=== PATIENT | male | born 1950 | race Caucasian/White ===

== ENCOUNTER 2017-08-13 13:51 | Inpatient (IN) ==
[2017-08-13] MEDS ORDERED: Ipratropium/Albuterol Neb 3 ML IH ONE (14:04)
[2017-08-13] MEDS ORDERED: methylPREDNISolone 125 MG/2 ML VIAL IVP ONE (14:04)
[2017-08-13] MEDS ORDERED: Azithromycin 500 MG in D5% in Water 250 ML IVPB ONE (14:20)
[2017-08-13] MEDS ORDERED: cefTRIAXone 1,000 MG in Water for inj. (sterile) 20 ML 10 ML IVP ONE (14:20)
[2017-08-13] MEDS ORDERED: 0.9 % Sodium Chloride 1,000 ML IVC ONE (14:34)
[2017-08-13 14:54] LABS: Basophils # 0.1 K/mcL (0.0-0.2); Basophils % 0.3 %; Eosinophils # 0.1 K/mcL (0.0-0.6); Eosinophils % 0.4 %; Hematocrit 38.1 % (37.5-50.1); Hemoglobin 13.8 g/dL (12.9-16.9); Immature Granulocytes % 0.8 % (0-4); Immature Platelets 6.4 % (1.1-6.1); Lymphocytes # 1.4 K/mcL (0.6-4.6); Lymphocytes % 4.4 %; Mean Corpuscular HGB Conc 36.2 g/dL (31.6-35.5); Mean Corpuscular Hemoglobin 31.2 pg (28.0-33.3); Mean Platelet Volume 10.1 fL (9.4-12.4); Monocytes # 1.2 K/mcL (0.0-1.3); Monocytes % 3.8 %; Platelet Count 314 K/mcL (140-400); Red Blood Count 4.43 M/mcL (4.19-5.50); Red Cell Distribution Width 12.4 % (11.5-14.5); Segmented Neutrophils % 90.3 %
[2017-08-13 14:55] LABS: Neutrophils # 28.2 K/mcL (1.6-8.9)
[2017-08-13 15:10] LABS: BUN/Creatinine Ratio 27 (6-26); Blood Urea Nitrogen 22 mg/dL (8-23); Calcium 9.1 mg/dL (8.6-10.3); Carbon Dioxide 26 mEq/L (23-29); Chloride 100 mEq/L (98-107); Glucose 93 mg/dL (70-105); Osmolality,Calculated 283 (280-300); Potassium 3.5 mEq/L (3.5-5.1); Sodium 135 mEq/L (136-145); eGFR For African Americans > 60 (> 60); eGFR For Non-African Americans > 60 (> 60)
--- NOTE | 2017-08-13 15:12 | Emergency Department Note ---
Disposition Clinical Impression: Acute exacerbation of chronic obstructive airways disease, Community acquired pneumonia Disposition: Admitted As Inpatient Condition: Good Referrals: Able-Latosha Charlton DO [Family Provider] - Forms: ED Satisfaction Letter Time of Disposition: 16:01 [facility] [place] - General Chief Complaint: ED Shortness of Breath/Dyspnea Stated Complaint: Possible Pneumonia Time Seen by Provider: 08/13/17 13:58 Source: patient Limitations: no limitations Nursing Notes Reviewed: Yes Vital Signs Reviewed: Yes - History of Present Illness 66-year-old male presents emergency room for 4 day history of cough and shortness of breath. Patient admits to some clear sputum production. Unsure if these had any documented fevers or not. Denies chest pain but states he does have some chest discomfort while coughing. And has a history of smoking but has not smoked in a long time. He does not wear home oxygen. He does require oxygen upon arrival. No other complaints at this time. - Related Data Allergies Allergy/AdvReac Type Severity Reaction Status Date / Time No Known Allergies Allergy Verified 08/13/17 15:29 Constitutional: Reports: chills ENT ED: Reports: as per HPI Cardiovascular: Reports: as per HPI. Denies: chest pain Respiratory: Reports: cough, dyspnea, wheezes Gastrointestinal: Denies: abdominal pain Genitourinary: Reports: as per HPI Musculoskeletal: Reports: as per HPI Integumentary: Reports: as per HPI Neurological: Reports: as per HPI Psychiatric: Reports: as per HPI Endocrine: Reports: as per HPI Hematological/Lymphatic: Reports: as per HPI Past Medical History - Past Medical History Medical history: Reports: no medical history Psychiatric history: Reports: no psych history - Social History Smoking Status: Former smoker Smokeless Tobacco Status: No Alcohol use: Reports: rarely Drug use: Reports: none Physical Exam - General Limitations: no limitations General appearance: alert, in no apparent distress - Head Head exam: atraumatic, normocephalic - ENT ENT exam: normal exam - Neck Neck exam: Present: normal inspection - Chest Chest inspection: Present: normal inspection, symmetric chest wall rise - Respiratory Respiratory exam: Present: respiratory distress ( tachypneic), other (Decreased breath sounds in the right side. Positive rhonchi on the right side.) - Cardiovascular Cardiovascular exam: Present: normal rhythm, tachycardia - Abdominal Exam Abdominal exam: Present: soft, Non-Tender, normal bowel sounds - Extremities Exam Extremities exam: Present: normal inspection, full ROM. Absent: tenderness - Expanded Lower Extremity Exam Hip/Pelvis exam: Present: normal inspection - Neurological Exam Neurological exam: Present: alert, oriented X3 - Psychiatric Psychiatric exam: Present: normal affect, normal mood - Skin Skin exam: Present: warm, dry, intact Course Vital Signs Temperature 98.8 F 08/13/17 13:53 Pulse Rate 129 08/13/17 13:53 Respiratory Rate 18 08/13/17 13:53 Blood Pressure 148/72 08/13/17 13:53 O2 Sat by Pulse Oximetry 88 08/13/17 13:53 Temperature 98.8 F 08/13/17 13:53 Pulse Rate 118 08/13/17 15:12 Respiratory Rate 22 08/13/17 15:12 Blood Pressure 123/69 08/13/17 15:12 O2 Sat by Pulse Oximetry 96 08/13/17 15:12 Oxygen Delivery Oxygen Delivery Nasal Cannula Shortness of Breath/Dyspnea - [facility] Narrative Medical decision making narrative: Patient's chest x-ray is indicative of a right basilar pneumonia. I will start him on IV Rocephin and IV Zithromax. Patient will be started on IV fluids as he definitely meets SIRS criteria. Blood cultures obtained. Patient had an incidental note of an elevated d- dimer. We will do a CTA of the chest to evaluate for possible PE as well. - Medical Records Medical records reviewed: Yes I reviewed the patient's medical records. - Lab Data Lab results reviewed: Yes I reviewed the patient's lab results. Result diagrams: 08/13/17 14:39 08/13/17 14:39 Lab Results 08/13/17 08/13/17 08/13/17 Range/Units 14:39 14:39 14:39 WBC 31.2 H* (4.3-11.1) K/mcL RBC 4.43 (4.19-5.50) M/mcL Hgb 13.8 (12.9-16.9) g/dL Hct 38.1 (37.5-50.1) % MCV 86.0 (83.0-100.0) fL MCH 31.2 (28.0-33.3) pg MCHC 36.2 H (31.6-35.5) g/dL RDW 12.4 (11.5-14.5) % Plt Count 314 (140-400) K/mcL MPV 10.1 (9.4-12.4) fL Immature Gran % 0.8 (0-4) % Seg Neutrophils % 90.3 % Lymphocytes % 4.4 % Monocytes % 3.8 % Eosinophils % 0.4 % Basophils % 0.3 % Neutrophils # 28.2 H (1.6-8.9) K/mcL Lymphocytes # 1.4 (0.6-4.6) K/mcL Monocytes # 1.2 (0.0-1.3) K/mcL Eosinophils # 0.1 (0.0-0.6) K/mcL Basophils # 0.1 (0.0-0.2) K/mcL Platelet Estimate Normal (Normal) Immature Plt Fraction 6.4 H (1.1-6.1) % D-Dimer 1253 H (0-500) ng/mLFEU Sodium 135 L (136-145) mEq/L Potassium 3.5 (3.5-5.1) mEq/L Chloride 100 (98-107) mEq/L Carbon Dioxide 26 (23-29) mEq/L BUN 22 (8-23) mg/dL Creatinine 0.81 (0.70-1.30) mg/dL Est GFR ( Amer) > 60 (> 60) Est GFR (Non-Af Amer) > 60 (> 60) BUN/Creatinine Ratio 27 H (6-26) Glucose 93 (70-105) mg/dL Calculated Osmolality 283 (280-300) Lactic Acid (0.5-2.2) mmol/L Calcium 9.1 (8.6-10.3) mg/dL 08/13/17 Range/Units 14:45 WBC (4.3-11.1) K/mcL RBC (4.19-5.50) M/mcL Hgb (12.9-16.9) g/dL Hct (37.5-50.1) % MCV (83.0-100.0) fL MCH (28.0-33.3) pg MCHC (31.6-35.5) g/dL RDW (11.5-14.5) % Plt Count (140-400) K/mcL MPV (9.4-12.4) fL Immature Gran % (0-4) % Seg Neutrophils % % Lymphocytes % % Monocytes % % Eosinophils % % Basophils % % Neutrophils # (1.6-8.9) K/mcL Lymphocytes # (0.6-4.6) K/mcL Monocytes # (0.0-1.3) K/mcL Eosinophils # (0.0-0.6) K/mcL Basophils # (0.0-0.2) K/mcL Platelet Estimate (Normal) Immature Plt Fraction (1.1-6.1) % D-Dimer (0-500) ng/mLFEU Sodium (136-145) mEq/L Potassium (3.5-5.1) mEq/L Chloride (98-107) mEq/L Carbon Dioxide (23-29) mEq/L BUN (8-23) mg/dL Creatinine (0.70-1.30) mg/dL Est GFR ( Amer) (> 60) Est GFR (Non-Af Amer) (> 60) BUN/Creatinine Ratio (6-26) Glucose (70-105) mg/dL Calculated Osmolality (280-300) Lactic Acid 1.5 (0.5-2.2) mmol/L Calcium (8.6-10.3) mg/dL - Radiology Data Radiology results reviewed: Yes I reviewed the patient's radiology results. - EKG Data EKG attestation: Yes I reviewed and interpreted this EKG. EKG results narrative: EKG shows a rate of 125. Sinus tachycardia. IN interval 157. QRS 77. QTC 366. No signs of any ST elevation. Critical Care Time Critical Care Time: Yes Total Critical Care Time: 35 Attestation: critical care time spent in sirs management of pneumonia/sirs
[2017-08-13 15:15] LABS: Platelet Estimate Normal (Normal)
--- NOTE | 2017-08-13 17:29 | Internal Med History&Physical ---
Date of Encounter: 08/14/17 Time of Encounter: 16:00 Assessment and Plan (1) Acute exacerbation of chronic obstructive airways disease Current visit: Yes Status: Acute The patient has no history of COPD, however long history of smoking and and finding on physical exam are suggestive of COPD, we will start the patient on steroids and neb treatment. (2) Community acquired pneumonia Current visit: Yes Status: Acute ASSESSMENT: - SOB due to *Pneumonia Previous ABx Tx- CAP severity score (PORT score): - Blood Cx - Urine Legionella antigen - Antibiotics - CBCD, CMP in AM - Tylenol 650 mg PO q 4-6 hr PRN pain or fever - Home meds - check the list and restart accordingly (3) DVT prophylaxis Current visit: Yes Status: Acute Internal Medicine - H&P: HPI Chief complaint: SOB Admitted From: Home History of present illness: Mr. Best is a 66 year old male who presents to the emergency room with 4 days history of productive cough of clear sputum and shortness of breath associated with chest discomfort while coughing. He has h/o 30 years of smoking but he quit long time ago. He does not wear home oxygen. He does require oxygen upon arrival due to hypoxia. The patient denying any past medical history, however he did not see his doctor for the past 15 years. He has 30 years history of smoking, whether he quit long time ago. Past Med Surg Social Fam HX - Past Medical History Medical history: no medical history Psychiatric history: no psych history - Social History Smoking Status: Former smoker Smokeless Tobacco Status: No Alcohol use: rarely Drug use: none Internal Medicine - H&P: Meds No Known Home Drugs 08/13/17 [History] 3 Allergy/AdvReac Type Severity Reaction Status Date / Time No Known Allergies Allergy Verified 08/13/17 15:29 All Systems PM: A 10-system review of systems was performed and is negative for pertinent findings except as documented above in the HPI. - Constitutional Constitutional: no chills, no fever(s), no night sweats - EENT Nose, mouth and throat: no dysphagia, no nasal discharge, no neck pain, no sore throat - Cardiovascular Cardiovascular ROS IM: dyspnea, no chest pain, no diaphoresis, no lightheadedness, no palpitations, no syncope - Respiratory Respiratory: cough, dyspnea, excessive phlegm production, no wheezing - Gastrointestinal Gastrointestinal: no abdominal pain, no diarrhea, no hematemesis, no hematochezia, no melena, no nausea, no vomiting - Musculoskeletal Musculoskeletal ROS IM: no numbness, no tingling - Constitutional Vitals: Temp Pulse Resp BP Pulse Ox 98.8 F 118 18 132/78 96 08/13/17 13:53 08/13/17 15:12 08/13/17 17:07 08/13/17 17:07 08/13/17 15:12 - Head Head exam: Present: atraumatic, normocephalic - Neck Neck exam general surgery: Present: supple, trachea midline. Absent: lymphadenopathy - Respiratory Respiratory exam: Present: decreased breath sounds, rhonchi - Cardiovascular Cardiovascular exam: Present: RRR, +S1, +S2. Absent: diastolic murmur, gallop, rubs, systolic murmur Internal Med - H&P Results - Labs CBC & Chem 7: 08/14/17 02:58 08/14/17 02:58
[2017-08-13] MEDS ORDERED: Albuterol 2.5 MG/3 ML NEBULIZER IH PRN (17:30)
[2017-08-13] MEDS ORDERED: Dextrose Gel 15 GM PO PRN ×2 (17:39)
[2017-08-13] MEDS ORDERED: *HR* Dextrose 50 % in Water (Syg) 50 ML SYRINGE IVP PRN (17:39)
[2017-08-13] MEDS ORDERED: D5% in Water 1,000 ML IVC PRN (17:39)
[2017-08-13 18:48] LABS: Hemoglobin A1C 4.9 %
[2017-08-13] MEDS: MethylPREDNISolone 40 MG/ML VIAL IVP SCH ×2 (18:51→23:19)
[2017-08-13] MEDS: Ipratropium/Albuterol Neb 3 ML IH SCH ×2 (20:01→23:44)
[2017-08-13] MEDS: *HR* Metoprolol 5 MG/5 ML VIAL IVP PRN (21:49)
[2017-08-14 03:29] LABS: Enterococcus by PCR Not Detected (Not Detect); Staphylococcus aureus by PCR Not Detected (Not Detect); blaKPC Carbapenem-Resist Gene Not Detected (Not Detect); mecA Methicillin-Resist Gene Not Detected (Not Detect); vanA/B Vancomycin-Resist Genes Not Detected (Not Detect)
[2017-08-14 03:30] LABS: Acinetobacter baumannii by PCR Not Detected (Not Detect); Candida albicans by PCR Not Detected (Not Detect); Candida glabrata by PCR Not Detected (Not Detect); Candida krusei by PCR Not Detected (Not Detect); Candida parapsilosis by PCR Not Detected (Not Detect); Candida tropicalis by PCR Not Detected (Not Detect); Escherichia coli by PCR Not Detected (Not Detect); Klebsiella oxytoca by PCR Not Detected (Not Detect); Klebsiella pneumoniae by PCR Not Detected (Not Detect); Pseudomonas aeruginosa by PCR Not Detected (Not Detect); Serratia marcescens by PCR Not Detected (Not Detect); Streptococcus agalactiae(B)PCR Not Detected (Not Detect); Streptococcus by PCR ***DETECTED*** (Not Detect); Streptococcus pneumoniae PCR ***DETECTED*** (Not Detect); Streptococcus pyogenes (A) PCR Not Detected (Not Detect)
[2017-08-14] MEDS: Ipratropium/Albuterol Neb 3 ML IH SCH ×6 (03:49→23:37)
[2017-08-14] MEDS ORDERED: Vancomycin 1,000 MG in D5% in Water 250 ML IVPB ONE (04:00)
[2017-08-14 04:01] LABS: Basophils % 0.2 %; Hematocrit 34.6 % (37.5-50.1); Hemoglobin 12.3 g/dL (12.9-16.9); Immature Granulocytes % 1.4 % (0-4); Lymphocytes # 0.6 K/mcL (0.6-4.6); Lymphocytes % 3.7 %; Mean Corpuscular HGB Conc 35.5 g/dL (31.6-35.5); Mean Corpuscular Hemoglobin 30.4 pg (28.0-33.3); Mean Corpuscular Volume 85.6 fL (83.0-100.0); Mean Platelet Volume 10.6 fL (9.4-12.4); Monocytes # 0.3 K/mcL (0.0-1.3); Monocytes % 1.9 %; Neutrophils # 14.2 K/mcL (1.6-8.9); Platelet Count 299 K/mcL (140-400); Red Blood Count 4.04 M/mcL (4.19-5.50); Red Cell Distribution Width 12.4 % (11.5-14.5); Segmented Neutrophils % 92.8 %
--- NOTE | 2017-08-14 04:12 | Event Note ---
<Jovan Merchant - Last Filed: 08/14/17 04:12> Date of Encounter: 08/14/17 Time of Encounter: 04:09 Preliminary blood cultures resulted x4 bottles growth of gram positive cocci. Will initiate Vanc+Zosyn for MRSA, strep pyogenes, strep pneumo, enterococcus coverage until report finalized with sensitivities. <Mora Olguin - Last Filed: 08/14/17 19:44> Date of Encounter: 08/14/17 I examined this patient and my medical decision-making was reviewed with the resident physician. I agree with the documented findings, disposition and treatment plan as described except to the extent set forth below.
[2017-08-14 04:19] LABS: Alanine Aminotransferase 30 Units/L (7-52); Alkaline Phosphatase 128 Units/L (34-104); Aspartate Amino Transferase 16 Units/L (13-39); BUN/Creatinine Ratio 20 (6-26); Bilirubin,Total 0.4 mg/dL (0.3-1.0); Blood Urea Nitrogen 15 mg/dL (8-23); Calcium 8.7 mg/dL (8.6-10.3); Carbon Dioxide 26 mEq/L (23-29); Chloride 102 mEq/L (98-107); Globulin 3.1 g/dL (2.4-3.5); Glucose 214 mg/dL (70-105); Osmolality,Calculated 289 (280-300); Potassium 3.6 mEq/L (3.5-5.1); Sodium 136 mEq/L (136-145); Total Protein 6.1 g/dL (6.4-8.9); eGFR For African Americans > 60 (> 60); eGFR For Non-African Americans > 60 (> 60)
[2017-08-14] MEDS: Piperacillin/Tazobactam 3.375 GM/200 ML BAG IVPB SCH ×3 (04:46→22:03)
[2017-08-14] MEDS: MethylPREDNISolone 40 MG/ML VIAL IVP SCH ×3 (04:55→17:44)
[2017-08-14] MEDS ORDERED: cefTRIAXone 1,000 MG in Water for inj. (sterile) 20 ML 10 ML IVP SCH (09:00)
[2017-08-14] MEDS ORDERED: Vancomycin 1,500 MG in D5% in Water 250 ML IVPB SCH (12:00)
--- NOTE | 2017-08-14 12:09 | Internal Med Progress Note ---
Date of Encounter: 08/14/17 Time of Encounter: 08:30 - Assessment and plan (1) Community acquired pneumonia Current Visit: Yes Status: Acute Assessment and plan: Sepsis, present on admission - secondary to community-acquired pneumonia, likely bacterial Continue empiric IV Zosyn, IV Vancomycin, DuoNeb breathing treatment, Tylenol PRN CT chest - negative for PE, consolidative changes within the right middle and right lower lobes compatible with pneumonia EKG - sinus tachycardia with no acute ST-T changes Troponin - 0.10, second troponin - likely demand ischemia Lactic acid - 1.2 Blood cultures - gram-positive cocci Cardiac telemetry, labs in a.m., monitor closely Qualifiers: Laterality: right Lung location: lower lobe of lung Qualified Code(s): J18.1 - Lobar pneumonia, unspecified organism (2) Acute exacerbation of chronic obstructive airways disease Current Visit: Yes Status: Acute Assessment and plan: Acute exacerbation of COPD Continue DuoNeb breathing treatment, empiric antibiotics, O2 via NC Continue IV Solu-Medrol (3) Tachycardia Current Visit: Yes Status: Acute Assessment and plan: Sinus tachycardia - patient apparently has baseline tachycardia Continue IV Metoprolol PRN HR >100 (4) DVT prophylaxis Current Visit: Yes Status: Acute Assessment and plan: Heparin subcutaneous - Time Spent With Patient 25 - 35 minutes - Subjective Interval history: Examined this morning. Patient is awake and alert. Not in any distress. Denies chest pain. Complains of mild shortness of breath and cough. States he feels better otherwise. No fever. Hemodynamically stable. Patient has no significant past medical history. Admitted yesterday for community-acquired pneumonia and COPD exacerbation. He is currently on bronchodilators and IV antibiotics. Blood cultures are positive for gram- positive cocci. - Constitutional Vitals: Temp Pulse Resp BP Pulse Ox 98.4 F 127 17 130/65 93 08/14/17 11:29 08/14/17 11:29 08/14/17 11:29 08/14/17 11:29 08/14/17 11:29 General appearance: Present: cooperative, A&O X 3, pleasant, no acute distress, answers questions appropriately - Head Head exam: Present: atraumatic - Eye Eye exam: Present: EOMI - ENT ENT exam: Present: mucous membranes moist - Respiratory Respiratory exam: Present: wheezes (Mild bilateral). Absent: accessory muscle use, chest wall tenderness, rales, respiratory distress, rhonchi, tachypnea - Cardiovascular Cardiovascular exam: Present: RRR, +S1, +S2 - GI/Abdominal GI/Abdominal exam: Present: soft. Absent: distended, firm, guarding, tenderness - Extremities Exam Extremities exam: Present: radial pulses palpable and symmetrical. Absent: calf tenderness, cyanotic, pedal edema - Neurological Exam Neurological exam: Present: alert, oriented X3, no focal deficits. Absent: facial droop, speech deficit Internal Medicine: Result - Labs CBC & Chem 7: 08/14/17 02:58 08/14/17 02:58 Labs: Short CBC 08/14/17 Range/Units 02:58 WBC 15.3 H D (4.3-11.1) K/mcL Hgb 12.3 L D (12.9-16.9) g/dL Hct 34.6 L (37.5-50.1) % Plt Count 299 (140-400) K/mcL Neutrophils # 14.2 H (1.6-8.9) K/mcL BMP 08/14/17 02:58 Sodium 136 Potassium 3.6 Chloride 102 Carbon Dioxide 26 BUN 15 Creatinine 0.76 Glucose 214 H Calcium 8.7 Liver Function 08/14/17 Range/Units 02:58 Total Bilirubin 0.4 (0.3-1.0) mg/dL AST 16 (13-39) Units/L ALT 30 (7-52) Units/L Alkaline Phosphatase 128 H (34-104) Units/L Albumin 3.0 L (3.5-5.7) g/dL - ABG Interpretation ABG results: PT/INR, D-dimer D-Dimer 1253 ng/mLFEU (0-500) H 08/13/17 14:39 Consult Discharge Plan - Plan Referrals: NONE,PCP [Primary Care Provider] - Able-Latosha Charlton DO [Family Provider] -
[2017-08-14] MEDS ORDERED: Acetaminophen 325 MG TABLET PO PRN (12:12)
[2017-08-14] MEDS: Vancomycin 1,500 MG in D5% in Water 250 ML IVPB SCH (12:38)
[2017-08-14] MEDS: *HR* Metoprolol 5 MG/5 ML VIAL IVP PRN (13:35)
[2017-08-14] MEDS ORDERED: *HR* Metoprolol 5 MG/5 ML VIAL IVP PRN (15:39)
[2017-08-14] MEDS ORDERED: Naloxone 0.4 MG/ML INJ IVP PRN (17:34)
[2017-08-14] MEDS: *HR* Heparin 5,000 UNIT/ML VIAL SQ SCH (17:43)
[2017-08-15] MEDS: Vancomycin 1,500 MG in D5% in Water 250 ML IVPB SCH ×2 (00:16→11:32)
[2017-08-15] MEDS: MethylPREDNISolone 40 MG/ML VIAL IVP SCH ×3 (00:16→16:22)
[2017-08-15] MEDS: Ipratropium/Albuterol Neb 3 ML IH SCH ×6 (03:50→23:34)
[2017-08-15 04:20] LABS: Basophils # 0.1 K/mcL (0.0-0.2); Basophils % 0.3 %; Hematocrit 31.4 % (37.5-50.1); Hemoglobin 11.4 g/dL (12.9-16.9); Immature Granulocytes % 2.6 % (0-4); Lymphocytes % 4.9 %; Mean Corpuscular HGB Conc 36.3 g/dL (31.6-35.5); Mean Corpuscular Hemoglobin 30.6 pg (28.0-33.3); Mean Corpuscular Volume 84.4 fL (83.0-100.0); Mean Platelet Volume 10.3 fL (9.4-12.4); Monocytes # 1.1 K/mcL (0.0-1.3); Monocytes % 5.3 %; Neutrophils # 18.1 K/mcL (1.6-8.9); Platelet Count 292 K/mcL (140-400); Red Blood Count 3.72 M/mcL (4.19-5.50); Red Cell Distribution Width 12.5 % (11.5-14.5); Segmented Neutrophils % 86.9 %
[2017-08-15 04:42] LABS: BUN/Creatinine Ratio 23 (6-26); Blood Urea Nitrogen 23 mg/dL (8-23); Calcium 8.6 mg/dL (8.6-10.3); Carbon Dioxide 28 mEq/L (23-29); Chloride 103 mEq/L (98-107); Glucose 177 mg/dL (70-105); Osmolality,Calculated 294 (280-300); Potassium 3.4 mEq/L (3.5-5.1); Sodium 138 mEq/L (136-145); eGFR For African Americans > 60 (> 60); eGFR For Non-African Americans > 60 (> 60)
[2017-08-15] MEDS: *HR* Heparin 5,000 UNIT/ML VIAL SQ SCH ×2 (05:23→16:23)
[2017-08-15] MEDS: Piperacillin/Tazobactam 3.375 GM/200 ML BAG IVPB SCH ×3 (05:23→19:42)
[2017-08-15] MEDS ORDERED: Aminoglycoside Consult 1 EACH MC ONE (06:59)
--- NOTE | 2017-08-15 08:46 | Internal Med Progress Note ---
<Hero Munoz - Last Filed: 08/15/17 12:26> Date of Encounter: 08/15/17 Time of Encounter: 08:44 - Assessment and plan (1) Community acquired pneumonia Current Visit: Yes Status: Acute Assessment and plan: Sepsis, present on admission - secondary to community-acquired pneumonia, likely bacterial Continue empiric IV Zosyn, IV Vancomycin, DuoNeb breathing treatment, Tylenol PRN CT chest - negative for PE, consolidative changes within the right middle and right lower lobes compatible with pneumonia EKG - sinus tachycardia with no acute ST-T changes Troponin - 0.10, second troponin - likely demand ischemia Lactic acid - 1.2 Blood cultures - gram-positive cocci still awaiting susceptibility Cardiac telemetry, monitor closely Qualifiers: Laterality: right Lung location: lower lobe of lung Qualified Code(s): J18.1 - Lobar pneumonia, unspecified organism (2) Acute exacerbation of chronic obstructive airways disease Current Visit: Yes Status: Acute Assessment and plan: Acute exacerbation of COPD Continue DuoNeb breathing treatment, empiric antibiotics, O2 via NC Continue IV Solu-Medrol (3) DVT prophylaxis Current Visit: Yes Status: Acute Assessment and plan: Heparin subcutaneous (4) Tachycardia Current Visit: Yes Status: Acute Assessment and plan: Sinus tachycardia - patient apparently has baseline tachycardia Continue IV Metoprolol PRN HR >100 Will start him on 12.5 po metoprolol BID, plan to send him home with this as well. - Subjective Interval history: PT is doing well today saying he is better than he was yesterday and is having an easier time of breathing. He states he thinks he is now on the correct antibiotics as he feels much better now. He is having no chest pain, fevers, SOB , nasuea, vomiting or any other symptoms or complaints. - Constitutional Vitals: Temp Pulse Resp BP Pulse Ox 97.8 F 105 16 104/62 92 08/15/17 07:12 08/15/17 07:12 08/15/17 07:12 08/15/17 07:12 08/15/17 07:12 General appearance: Present: cooperative, A&O X 3, pleasant, no acute distress, answers questions appropriately - Head Head exam: Present: atraumatic, normocephalic - Eye Eye exam: Present: PERRL, conjuntiva pink, sclera anicteric Pupils: Present: PERRL - Neck Neck exam general surgery: Present: supple, trachea midline. Absent: lymphadenopathy - Respiratory Respiratory exam: Present: decreased breath sounds, CTAB. Absent: accessory muscle use, rales, respiratory distress, rhonchi, wheezes - Cardiovascular Cardiovascular exam: Present: RRR, +S1, +S2. Absent: diastolic murmur, gallop, rubs, systolic murmur - GI/Abdominal GI/Abdominal exam: Present: normal bowel sounds, soft, no peritoneal signs. Absent: distended, tenderness - Extremities Exam Extremities exam: Present: warm, radial pulses palpable and symmetrical. Absent : calf tenderness, cyanotic, pedal edema - Neurological Exam Neurological exam: Present: CN II-XII intact, oriented X3, no focal deficits. Absent: pronater drift, facial droop, speech deficit - Skin Skin exam: Present: dry, intact Internal Medicine: Result - Labs CBC & Chem 7: 08/15/17 03:27 08/15/17 03:27 Labs: Short CBC 08/15/17 Range/Units 03:27 WBC 20.8 H (4.3-11.1) K/mcL Hgb 11.4 L (12.9-16.9) g/dL Hct 31.4 L (37.5-50.1) % Plt Count 292 (140-400) K/mcL Neutrophils # 18.1 H (1.6-8.9) K/mcL BMP 08/15/17 03:27 Sodium 138 Potassium 3.4 L Chloride 103 Carbon Dioxide 28 BUN 23 Creatinine 0.98 Glucose 177 H Calcium 8.6 - ABG Interpretation ABG results: PT/INR, D-dimer D-Dimer 1253 ng/mLFEU (0-500) H 08/13/17 14:39 Consult Discharge Plan - Plan Referrals: [place]-Latosha Charlton DO [Family Provider] - NONE,PCP [Primary Care Provider] - <Braulio-Doyle Fernandez - Last Filed: 08/15/17 13:24> Date of Encounter: 08/15/17 - Assessment and plan (1) Community acquired pneumonia Current Visit: Yes Status: Acute Qualifiers: Laterality: right Lung location: lower lobe of lung Qualified Code(s): J18.1 - Lobar pneumonia, unspecified organism (2) Acute exacerbation of chronic obstructive airways disease Current Visit: Yes Status: Acute (3) Tachycardia Current Visit: Yes Status: Acute (4) DVT prophylaxis Current Visit: Yes Status: Acute - Constitutional Vitals: Temp Pulse Resp BP Pulse Ox 97.6 F 115 17 112/58 92 08/15/17 13:11 08/15/17 13:11 08/15/17 13:11 08/15/17 13:11 08/15/17 13:11 Internal Medicine: Result - Labs CBC & Chem 7: 08/15/17 03:27 08/15/17 03:27 Labs: Short CBC 08/15/17 Range/Units 03:27 WBC 20.8 H (4.3-11.1) K/mcL Hgb 11.4 L (12.9-16.9) g/dL Hct 31.4 L (37.5-50.1) % Plt Count 292 (140-400) K/mcL Neutrophils # 18.1 H (1.6-8.9) K/mcL BMP 08/15/17 03:27 Sodium 138 Potassium 3.4 L Chloride 103 Carbon Dioxide 28 BUN 23 Creatinine 0.98 Glucose 177 H Calcium 8.6 - ABG Interpretation ABG results: PT/INR, D-dimer D-Dimer 1253 ng/mLFEU (0-500) H 08/13/17 14:39 - Attending Attestation I examined this patient and my medical decision-making was reviewed with the Resident Physician. I agree with the documented findings, disposition and treatment plan as described except to the extent set forth below. I have seen and examined the patient. Patient is awake and alert. Not in any distress. States he feels better. Denies chest pain or shortness of breath. No fever. Hemodynamically stable. Patient currently requires 2 L O2 via nasal cannula. On room air his O2 saturation is around 88%. At this time we will continue DuoNeb breathing treatment and Zosyn and Vancomycin. Patient is being treated for COPD exacerbation and community-acquired pneumonia. Blood cultures are positive. We will need repeat blood cultures tomorrow morning. Patient will probably need home oxygen and we will do a home O2 qualification test tomorrow. Patient does seem to have advanced COPD. Patient's white count is elevated today, likely due to steroid use. He does not have fever. He does have sinus tachycardia and will start Lopressor today. Patient has been explained about his condition and plan cannot tell. He understood and agreed. No unanswered questions. CODE STATUS full code. Heart - S1-S2 positive, tachycardic. Lungs - bilateral good air entry, slightly decreased in both bases. Abdomen - soft nontender. Extremities - pulses strong and equal, no edema.
[2017-08-16] MEDS: Vancomycin 1,500 MG in D5% in Water 250 ML IVPB SCH (00:20)
[2017-08-16] MEDS: MethylPREDNISolone 40 MG/ML VIAL IVP SCH (00:21)
[2017-08-16] MEDS: Piperacillin/Tazobactam 3.375 GM/200 ML BAG IVPB SCH (03:08)
[2017-08-16] MEDS: Ipratropium/Albuterol Neb 3 ML IH SCH ×6 (04:06→23:50)
[2017-08-16] MEDS: *HR* Heparin 5,000 UNIT/ML VIAL SQ SCH ×2 (05:00→17:20)
[2017-08-16 06:33] LABS: Hematocrit 33.6 % (37.5-50.1); Hemoglobin 12.1 g/dL (12.9-16.9); Mean Corpuscular Hemoglobin 30.5 pg (28.0-33.3); Mean Corpuscular Volume 84.6 fL (83.0-100.0); Mean Platelet Volume 9.8 fL (9.4-12.4); Platelet Count 334 K/mcL (140-400); Red Blood Count 3.97 M/mcL (4.19-5.50); Red Cell Distribution Width 12.8 % (11.5-14.5)
[2017-08-16 06:47] LABS: BUN/Creatinine Ratio 25 (6-26); Blood Urea Nitrogen 21 mg/dL (8-23); Calcium 8.5 mg/dL (8.6-10.3); Carbon Dioxide 30 mEq/L (23-29); Chloride 104 mEq/L (98-107); Glucose 134 mg/dL (70-105); Osmolality,Calculated 295 (280-300); Potassium 3.6 mEq/L (3.5-5.1); Sodium 140 mEq/L (136-145); eGFR For African Americans > 60 (> 60); eGFR For Non-African Americans > 60 (> 60)
[2017-08-16 08:03] LABS: Lymphocytes # 2.5 K/mcL (0.6-4.6); Monocytes # 0.6 K/mcL (0.0-1.3); Neutrophils # 12.6 K/mcL (1.6-8.9); Platelet Estimate Normal (Normal); Polychromasia 1+ (Not Present); Schistocytes 1+ (Not Present); Target Cells 1+ (Not Present)
[2017-08-16] MEDS ORDERED: 0.9 % Sodium Chloride 1,000 ML IVC ONE (08:21)
[2017-08-16] MEDS: Penicillin G Potassium 4,000,000 UNIT in D5% in Water 100 ML IVPB SCH ×5 (09:21→23:59)
--- NOTE | 2017-08-16 09:24 | Internal Med Progress Note ---
<Hero Munoz - Last Filed: 08/16/17 11:29> Date of Encounter: 08/16/17 Time of Encounter: 09:22 - Assessment and plan (1) Community acquired pneumonia Current Visit: Yes Status: Acute Assessment and plan: Sepsis, present on admission - secondary to community-acquired pneumonia, likely bacterial Change IV Zosyn, IV Vancomycin to Penicillin G Potassium 4 million units Q4hrs based on sensitivities Continue DuoNeb breathing treatment, Tylenol PRN CT chest - negative for PE, consolidative changes within the right middle and right lower lobes compatible with pneumonia EKG - sinus tachycardia with no acute ST-T changes Troponin - 0.10, second troponin - likely demand ischemia Lactic acid - 1.2 Blood cultures - gram-positive cocci suseptible to Penicillins and vancomycin so we were covering correctly but will change to Pen G potassium Will get repeat cultures today at 1200 if there is still strep pnemonia will consider Echo for possible endocarditis and valve vegetations Cardiac telemetry, monitor closely Qualifiers: Laterality: right Lung location: lower lobe of lung Qualified Code(s): J18.1 - Lobar pneumonia, unspecified organism (2) Acute exacerbation of chronic obstructive airways disease Current Visit: Yes Status: Acute Assessment and plan: Acute exacerbation of COPD Continue DuoNeb breathing treatment, empiric antibiotics, O2 via NC Will change to Oral Prednisone 40mg daily for 3 more days starting tomorrow. (3) DVT prophylaxis Current Visit: Yes Status: Acute Assessment and plan: Heparin subcutaneous (4) Tachycardia Current Visit: Yes Status: Acute Assessment and plan: Sinus tachycardia - patient apparently has baseline tachycardia Continue IV Metoprolol PRN HR >100 Will start him on 12.5 po metoprolol BID, plan to send him home with this as well. - Subjective Interval history: PT is doing well today saying he is better than he was yesterday and is having an easier time of breathing. He states he thinks he is now on the correct antibiotics as he feels much better now. He is having no chest pain, fevers, SOB , nasuea, vomiting or any other symptoms or complaints. There are no events overnight. Patient states he would like to look at getting home oxygen as his COPD he has now worsened. - Constitutional Vitals: Temp Pulse Resp BP Pulse Ox 98.2 F 105 18 134/81 93 08/16/17 07:32 08/16/17 07:32 08/16/17 07:40 08/16/17 07:32 08/16/17 07:40 General appearance: Present: cooperative, A&O X 3, pleasant, no acute distress, answers questions appropriately - Head Head exam: Present: atraumatic, normocephalic - Eye Eye exam: Present: PERRL, conjuntiva pink, sclera anicteric Pupils: Present: PERRL - Neck Neck exam general surgery: Present: supple, trachea midline. Absent: lymphadenopathy - Respiratory Respiratory exam: Present: CTAB. Absent: accessory muscle use, rales, rhonchi, wheezes - Cardiovascular Cardiovascular exam: Present: RRR, +S1, +S2. Absent: diastolic murmur, gallop, rubs, systolic murmur - GI/Abdominal GI/Abdominal exam: Present: normal bowel sounds, soft, no peritoneal signs. Absent: distended, tenderness - Extremities Exam Extremities exam: Present: warm, radial pulses palpable and symmetrical. Absent : calf tenderness, cyanotic, pedal edema - Neurological Exam Neurological exam: Present: CN II-XII intact, oriented X3, no focal deficits. Absent: pronater drift, facial droop, speech deficit - Skin Skin exam: Present: dry, intact Internal Medicine: Result - Labs CBC & Chem 7: 08/16/17 06:06 08/16/17 06:06 Labs: Short CBC 08/16/17 Range/Units 06:06 WBC 15.7 H (4.3-11.1) K/mcL Hgb 12.1 L (12.9-16.9) g/dL Hct 33.6 L (37.5-50.1) % Plt Count 334 (140-400) K/mcL Neutrophils # 12.6 H (1.6-8.9) K/mcL BMP 08/16/17 06:06 Sodium 140 Potassium 3.6 Chloride 104 Carbon Dioxide 30 H BUN 21 Creatinine 0.83 Glucose 134 H Calcium 8.5 L - ABG Interpretation ABG results: PT/INR, D-dimer D-Dimer 1253 ng/mLFEU (0-500) H 08/13/17 14:39 Consult Discharge Plan - Plan Referrals: Able-Latosha Charlton DO [Family Provider] - [facility] NONE,PCP [Primary Care Provider] - () <Faustino Acevedo - Last Filed: 08/16/17 12:57> Date of Encounter: 08/16/17 - Assessment and plan (1) Bacteremia due to Gram-positive bacteria Current Visit: Yes Status: Acute (2) Acute exacerbation of chronic obstructive airways disease Current Visit: Yes Status: Acute (3) Community acquired pneumonia Current Visit: Yes Status: Acute Qualifiers: Laterality: right Lung location: lower lobe of lung Qualified Code(s): J18.1 - Lobar pneumonia, unspecified organism (4) DVT prophylaxis Current Visit: Yes Status: Acute (5) Tachycardia Current Visit: Yes Status: Acute (6) Respiratory failure with hypoxia Current Visit: Yes Status: Suspected Qualifiers: Chronicity: chronic Qualified Code(s): J96.11 - Chronic respiratory failure with hypoxia - Constitutional Vitals: Temp Pulse Resp BP Pulse Ox 97.6 F 100 18 155/81 89 08/16/17 10:51 08/16/17 10:51 08/16/17 11:12 08/16/17 10:51 08/16/17 11:12 Internal Medicine: Result - Labs CBC & Chem 7: 08/16/17 06:06 08/16/17 06:06 Labs: Short CBC 08/16/17 Range/Units 06:06 WBC 15.7 H (4.3-11.1) K/mcL Hgb 12.1 L (12.9-16.9) g/dL Hct 33.6 L (37.5-50.1) % Plt Count 334 (140-400) K/mcL Neutrophils # 12.6 H (1.6-8.9) K/mcL BMP 08/16/17 06:06 Sodium 140 Potassium 3.6 Chloride 104 Carbon Dioxide 30 H BUN 21 Creatinine 0.83 Glucose 134 H Calcium 8.5 L - ABG Interpretation ABG results: PT/INR, D-dimer D-Dimer 1253 ng/mLFEU (0-500) H 08/13/17 14:39 - Attending Attestation I have independently seen and examined this patient on 08/16/17 and discussed plan of care with the patient and the resident physicians Seen and examined at the bedside, no new complains 66 M with no prior medical history who was admitted for management of strep pneumo bacteremia, CAP secondary to strep and COPDE Patient has made significant improvement, is ambulatory Examination is unremarkable except for diminished breath sounds bilaterally possibly due to chronic COPD. Labs and imaging reviewed leukocytosis is improving, hemoglobin is stable chemistry stable. Blood culture noted for streptococcal pneumonia sensitive to penicillin. Plan is to continue current management. Blood cultures today if blood cultures are negative, patient may be discharged tomorrow. We will give patient IV fluids for his tachycardia. If Blood culture remains persistently positive, we will Obtain echocardiogram to rule out infective endocarditis. Suspected chronic respiratory failure due to COPD, 6 minute walk test to assess patient's needs for home oxygen. Rest of details is as in the resident physicians documentation.
--- NOTE | 2017-08-16 15:58 | Electrocardiograph Report ---
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
--- NOTE | 2017-08-16 16:44 | Electrocardiograph Report ---
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
[2017-08-16] MEDS: Magic Mouthwash 10 ML UD Cup PO PRN (22:10)
[2017-08-17] MEDS: Ipratropium/Albuterol Neb 3 ML IH SCH ×4 (04:20→15:55)
[2017-08-17] MEDS: Penicillin G Potassium 4,000,000 UNIT in D5% in Water 100 ML IVPB SCH ×4 (05:08→16:07)
[2017-08-17] MEDS: *HR* Heparin 5,000 UNIT/ML VIAL SQ SCH ×2 (05:09→18:18)
[2017-08-17 05:56] LABS: Hematocrit 35.9 % (37.5-50.1); Hemoglobin 12.8 g/dL (12.9-16.9); Mean Corpuscular HGB Conc 35.7 g/dL (31.6-35.5); Mean Corpuscular Hemoglobin 30.5 pg (28.0-33.3); Mean Corpuscular Volume 85.7 fL (83.0-100.0); Mean Platelet Volume 9.9 fL (9.4-12.4); Nucleated Red Blood Cells 0.2 /100 WBC (0); Platelet Count 404 K/mcL (140-400); Red Blood Count 4.19 M/mcL (4.19-5.50); Red Cell Distribution Width 13.3 % (11.5-14.5)
[2017-08-17 06:22] LABS: Monocytes # 0.9 K/mcL (0.0-1.3); Neutrophils # 17.8 K/mcL (1.6-8.9); Platelet Estimate Increased (Normal)
[2017-08-17] MEDS ORDERED: predniSONE 20 MG TABLET PO SCH (09:00)
--- NOTE | 2017-08-17 09:40 | Internal Med Progress Note ---
Date of Encounter: 08/17/17 Time of Encounter: 09:38 - Assessment and plan (1) Community acquired pneumonia Current Visit: Yes Status: Acute Assessment and plan: Sepsis, present on admission - secondary to community-acquired pneumonia, likely bacterial Change IV Zosyn, IV Vancomycin to Penicillin G Potassium 4 million units Q4hrs based on sensitivities Continue DuoNeb breathing treatment, Tylenol PRN CT chest - negative for PE, consolidative changes within the right middle and right lower lobes compatible with pneumonia EKG - sinus tachycardia with no acute ST-T changes Troponin - 0.10, second troponin - likely demand ischemia Lactic acid - 1.2 Blood cultures - gram-positive cocci suseptible to Penicillins and vancomycin so we were covering correctly but will change to Pen G potassium Cultures were obtained yesterday and results are still pending, if there is still strep pnemonia will consider Echo for possible endocarditis and valve vegetations Cardiac telemetry, monitor closely Qualifiers: Laterality: right Lung location: lower lobe of lung Qualified Code(s): J18.1 - Lobar pneumonia, unspecified organism (2) Acute exacerbation of chronic obstructive airways disease Current Visit: Yes Status: Acute Assessment and plan: Acute exacerbation of COPD Continue DuoNeb breathing treatment, empiric antibiotics, O2 via NC Patient now on Oral Prednisone 40mg daily for 3 more days. (3) DVT prophylaxis Current Visit: Yes Status: Acute Assessment and plan: Heparin subcutaneous (4) Tachycardia Current Visit: Yes Status: Acute Assessment and plan: Sinus tachycardia - patient apparently has baseline tachycardia Continue IV Metoprolol PRN HR >100 Patient on 12.5 po metoprolol BID, plan to send him home with this as well. - Subjective Interval history: PT is doing well today saying he is better than he was yesterday and is having an easier time of breathing. He is having no chest pain, fevers, SOB, nasuea, vomiting or any other symptoms or complaints. There are no events overnight. Patient states he does feel better well and oxygen and he failed the oxygen test yesterday so is happy to be getting home oxygen when he gets discharged home. Update him on cultures and he is awaiting the results of those and is worrying him. - Constitutional Vitals: Temp Pulse Resp BP Pulse Ox 98.1 F 102 18 143/82 95 08/17/17 07:13 08/17/17 07:13 08/17/17 08:05 08/17/17 07:13 08/17/17 08:05 General appearance: Present: cooperative, A&O X 3, pleasant, no acute distress, answers questions appropriately - Head Head exam: Present: atraumatic, normocephalic - Eye Eye exam: Present: PERRL, conjuntiva pink, sclera anicteric Pupils: Present: PERRL - Neck Neck exam general surgery: Present: supple, trachea midline. Absent: lymphadenopathy - Respiratory Respiratory exam: Present: decreased breath sounds, CTAB. Absent: accessory muscle use, rales, respiratory distress, rhonchi, wheezes - Cardiovascular Cardiovascular exam: Present: RRR, +S1, +S2. Absent: diastolic murmur, gallop, rubs, systolic murmur - GI/Abdominal GI/Abdominal exam: Present: normal bowel sounds, soft, no peritoneal signs. Absent: distended, tenderness - Extremities Exam Extremities exam: Present: warm, radial pulses palpable and symmetrical. Absent : calf tenderness, cyanotic, pedal edema - Neurological Exam Neurological exam: Present: CN II-XII intact, oriented X3, no focal deficits. Absent: pronater drift, facial droop, speech deficit - Skin Skin exam: Present: dry, intact Internal Medicine: Result - Labs CBC & Chem 7: 08/17/17 04:40 08/16/17 06:06 Labs: Short CBC 08/17/17 Range/Units 04:40 WBC 21.7 H (4.3-11.1) K/mcL Hgb 12.8 L (12.9-16.9) g/dL Hct 35.9 L (37.5-50.1) % Plt Count 404 H (140-400) K/mcL Neutrophils # 17.8 H (1.6-8.9) K/mcL - ABG Interpretation ABG results: PT/INR, D-dimer D-Dimer 1253 ng/mLFEU (0-500) H 08/13/17 14:39 Consult Discharge Plan - Plan Referrals: Dominguez Pablo MD [Non-Partnered Physician] - 08/25/17 10:20 am Able-Latosha Charlton DO [Family Provider] - ([facility] I was able to obtain an appointment for this practice. Appointment information provided) Prescriptions: Penicillin VK 500 mg PO Q6HR #8 tablet Metoprolol [Lopressor] 12.5 mg PO BID #60 tablet predniSONE [PredniSONE] 40 mg PO DAILY #2 tablet
[2017-08-17 11:30] VITALS: BP 144/79
[2017-08-17] MEDS: Magic Mouthwash 10 ML UD Cup PO PRN (11:45)
--- NOTE | 2017-08-17 13:49 | Discharge Summary ---
<AlexanderHero - Last Filed: 08/17/17 13:43> Date of Encounter: 08/17/17 Time of Encounter: 13:43 - Discharge Diagnosis (1) Community acquired pneumonia Priority: Primary Status: Acute Qualifiers: Laterality: right Lung location: lower lobe of lung Qualified Code(s): J18.1 - Lobar pneumonia, unspecified organism (2) Acute exacerbation of chronic obstructive airways disease Priority: Secondary Status: Acute Comments: Patient did meet oxygen requirements and will need two liters of home oxygen continuously. (3) DVT prophylaxis Priority: Secondary Status: Acute (4) Tachycardia Priority: Secondary Status: Acute - Discharge Medications Prescriptions: Penicillin VK 500 mg PO Q6HR #8 tablet Metoprolol [Lopressor] 12.5 mg PO BID #60 tablet predniSONE [PredniSONE] 40 mg PO DAILY #2 tablet Home Medications: Albuterol Neb [Proventil Neb] 2.5 mg IH Q2H PRN inhsol 08/17/17 [Rx] Ipratropium/Albuterol Neb [Duoneb] 3 ml IH [id number] inhsol 08/17/17 [Rx] Metoprolol [Lopressor] 12.5 mg PO BID #60 tablet 08/17/17 [Rx] Penicillin VK 500 mg PO Q6HR #8 tablet 08/17/17 [Rx] predniSONE [PredniSONE] 40 mg PO DAILY #2 tablet 08/17/17 [Rx] Allergies/Adverse Reactions: 3 Allergy/AdvReac Type Severity Reaction Status Date / Time No Known Allergies Allergy Verified 08/13/17 15:29 Procedures/tests Complete & Pending: Procedures Performed prior 72 hours Category Date Time Status ECG 12 lead ECG [ECG] Routine Y 08/14/17 15:31 Completed Date of admission: 08/14/17 17:34 Primary care physician: PCP NONE Discharging clinician: Hero Munoz Anticipated date of discharge: 08/17/17 - Patient Status Disposition: Home, Self-Care Condition: Good Functional capacity at discharge: independent ambulation Overall status at discharge: patient is progressing back to baseline - Discharge Instructions Instructions: Penicillin V (By mouth), Metoprolol (By mouth), Prednisone (By mouth), Chronic Obstructive Pulmonary Disease (DC) Follow Up With: Dominguez Pablo MD [Non-Partnered Physician] - 08/25/17 10:20 am Latosha Hall DO [Family Provider] - (patient wanted family Physician from [facility] I was able to obtain an appointment for this practice. Appointment information provided) - Diet and Activity Activity: increase activity as tolerated Diet: advance to your usual diet Interval History: Patient doing well today states he is ready to go home he feels much better not any shortness of breath or chest pain or fevers or any swelling. He is not complaining of any pain at this time. Hospital course: Mr. Best is a 66 year old male with history of COPD presented to the emergency department with shortness of breath and difficulty breathing. After being evaluated there and he did show to have a right basilar pneumonia. There was worry about possible pulmonary embolisms they did CTA of his chest which showed no pulmonary embolism the right middle and lower lobe pneumonia as well as a small right pleural effusion. Blood cultures did grow back positive for strep pneumo. Patient did have an elevated white count. Before the strep pneumo susceptibilities came back he was started on Vanco and Zosyn. He tolerated these well. He was also given duo nebs as needed as well as on oxygen due to hypoxia. Patient also is tachycardic he says is chronic for him. We did start him on 12.5 of metoprolol and is sending him home and he will follow-up with his primary care physician about continuing this. Blood culture susceptibilities came back where was very susceptible to many medications including penicillin and due to him not being allergic we decided to change him to penicillin G potassium 4 million units every 4 hours. He was also susceptible to vancomycin and Zosyn. The cultures were repeated 3 days later which showed no growth so there was no need T echocardiogram for endocarditis. Patient was on Solu-Medrol while he was here he was changed 3 days prior to being discharged to oral prednisone. We will send him home on 2 more days 40 mg daily to complete the course. Patient also was needing oxygen while he is here he did meet auction requirements and will need 2 liters of continuous oxygen while at home. To complete the seven-day course of antibiotics patient will need to continue taking the penicillin VK oral 500 mg every 6 hours. This prescription was also sent home with him. Patient is being discharged home in stable condition and has follow-up with his primary care physician. - Time Spent with Patient Total time spent providing and/or coordinating discharge services: - Constitutional Vitals: Temp Pulse Resp BP Pulse Ox 97.4 F L 103 16 144/79 97 08/17/17 11:25 08/17/17 11:25 08/17/17 11:25 08/17/17 11:25 08/17/17 11:25 General appearance: Present: cooperative, A&O X 3, pleasant, no acute distress, answers questions appropriately - Head Head exam: Present: atraumatic, normocephalic - Eye Eye exam: Present: PERRL, conjuntiva pink, sclera anicteric Pupils: Present: PERRL - Neck Neck exam general surgery: Present: supple, trachea midline. Absent: lymphadenopathy - Respiratory Respiratory exam: Present: CTAB. Absent: accessory muscle use, rales, rhonchi, wheezes - Cardiovascular Cardiovascular exam: Present: RRR, +S1, +S2. Absent: diastolic murmur, gallop, rubs, systolic murmur - GI/Abdominal GI/Abdominal exam: Present: normal bowel sounds, soft, no peritoneal signs. Absent: distended, tenderness - Extremities Exam Extremities exam: Present: warm, radial pulses palpable and symmetrical. Absent : calf tenderness, cyanotic, pedal edema - Neurological Exam Neurological exam: Present: CN II-XII intact, oriented X3, no focal deficits. Absent: pronater drift, facial droop, speech deficit - Skin Skin exam: Present: dry, intact <Faustino Acevedo T - Last Filed: 08/17/17 15:15> Date of Encounter: 08/17/17 - Discharge Diagnosis (1) Bacteremia due to Gram-positive bacteria Status: Acute (2) Acute exacerbation of chronic obstructive airways disease Status: Acute (3) Community acquired pneumonia Status: Acute Qualifiers: Laterality: right Lung location: lower lobe of lung Qualified Code(s): J18.1 - Lobar pneumonia, unspecified organism (4) DVT prophylaxis Status: Acute (5) Tachycardia Status: Acute (6) Respiratory failure with hypoxia Status: Suspected Qualifiers: Chronicity: chronic Qualified Code(s): J96.11 - Chronic respiratory failure with hypoxia Procedures/tests Complete & Pending: Procedures Performed prior 72 hours Category Date Time Status ECG 12 lead ECG [ECG] Routine Y 08/14/17 15:31 Completed Date of admission: 08/14/17 17:34 Primary care physician: PCP NONE Hospital course: Mr. Best is a 66 year old male - Time Spent with Patient Total time spent providing and/or coordinating discharge services: - Constitutional Vitals: Temp Pulse Resp BP Pulse Ox 97.4 F L 103 16 144/79 97 08/17/17 11:25 08/17/17 11:25 08/17/17 11:25 08/17/17 11:25 08/17/17 11:25 - Attending Attestation I have independently seen and examined this patient on 07/23/17 and discussed plan of care with the patient and the resident physicians Seen and examined at the bedside, no new complains 66 M with no prior medical history who was admitted for management of strep pneumo bacteremia, CAP secondary to strep and COPDE He also had hypoxia secondary to CAP, suspected due to hx of COPD to be chronic Patient has made significant improvement, is ambulatory Examination is unremarkable except for diminished breath sounds bilaterally possibly due to chronic COPD. Labs and imaging reviewed repeat blood culture is preliminary negative Stable to be discharged home on 2L continuous O2, prednisone and penicillin for strep pneumoniae, to complete 7 days of therapy. Follow up with PCP Rest of details as in the resident physician's documentation.
[2017-08-17] MEDS ORDERED: FLUARIX QUAD 2017-18 36MOS UP/PF 0.5 ML SYRINGE IM ONE (14:15)
== END 2017-08-17 07:00 | disposition home or self-care (01) | DRG 871 ==
LOC: 2ANU 13:51 → EMEROO 13:51 → 2ANU 17:08 → SUATTDRO 08-14 17:34
PROVIDERS: ADMIT Internal Medicine Nephrology; ATTEND Internal Medicine